=== PATIENT | female | born 1985 ===

== ENCOUNTER 2022-11-19 15:15 | Outpatient (CLI) | payer OTHER | END 2022-11-19 17:44 | disposition home or self-care (01) | LOC: PRENATAL 15:15 | PROVIDERS: ATTEND Obstetrics & Gynecology Maternal & Fetal Medicine | DX: O35.3XX0 Maternal care for (suspected) damage to fetus from viral disease in mother, not applicable or unspecified (principal); O36.8199 Decreased fetal movements, unspecified trimester, other fetus; O34.219 Maternal care for unspecified type scar from previous cesarean delivery; O09.529 Supervision of elderly multigravida, unspecified trimester; O44.00 Complete placenta previa NOS or without hemorrhage, unspecified trimester; Z3A.30 30 weeks gestation of pregnancy ==

== ENCOUNTER 2023-01-14 14:13 | Inpatient (IN) | payer OTHER ==
[~2023-01-14] VITALS: Ht 157.5 cm; Wt 3.2 kg
[2023-01-14 15:19] LABS: HEMATOCRIT 36.5 % (36.0-45.00); HEMOGLOBIN 12.2 g/dL (12.0-15.00); MEAN CORPUSCULAR HEMOGLOBIN 30.9 pg (27.00-32.0); MEAN CORPUSCULAR HGB CONC 33.5 g/dl (32.0-36.0); PLATELET COUNT 200 K/uL (150-450); RED BLOOD COUNT 3.97 M/uL (4.00-6.00); RED CELL DISTRIBUTION WIDTH 13.3 % (11.5-14.5)
[2023-01-14 15:37] LABS: PH,URINE 5.5 (5.0-8.0); URINE APPEARANCE Clear; URINE BILIRRUBIN Negative (NEGATIVE); URINE BLOOD Negative; URINE COLOR Yellow; URINE GLUCOSE Negative (NEGATIVE); URINE LEUKOCYTE Negative; URINE NITRATE Negative; URINE PROTEIN Negative (NEGATIVE); URINE UROBILINOGEN 0.2 E.U./dl
[2023-01-14 15:38] LABS: URINE BACTERIA 1155.3 uL (0.0-1933); URINE EPITHELIAL CELLS 77.1 uL (0.0-38.8); URINE RBC 21.1 uL (0.0-20.8); URINE WBC 16.3 uL (0.0-23.2)
[2023-01-14 16:00] LABS: INR < 0.93; PARTIAL THROMBOPLASTIN TIME 29.4 SECONDS (22.0-34.0); PROTHROMBIN TIME 9.4 SECONDS (9.0-11.5)
[2023-01-14 16:03] LABS: URINE CRYSTALS MODERATE /HPF; URINE MUCUS HEAVY
[2023-01-21] MEDS ORDERED: PRENATE ELITE1 EAC2 PO (08:00)
[2023-01-21 12:38] LABS: ABG PH 7.174 (7.35-7.45); ABG PO2 10.9 mmHg (80-100); ABG pCO2 56.5 mmHg (35-45)
[2023-01-21 12:42] LABS: BASE EXCESS -8.7 mmol/l; BICARBONATE 20.3 mmol/l (23-25); SaO2 7.3 %; Tco2 22.1 mmol/l; o2 21 %
[2023-01-21 16:47] LABS: HEMATOCRIT 37.8 % (36.0-45.00); HEMOGLOBIN 12.6 g/dL (12.0-15.00); MEAN CELL VOLUME 92.1 fL (80.00-100.00); MEAN CORPUSCULAR HEMOGLOBIN 30.6 pg (27.00-32.0); MEAN CORPUSCULAR HGB CONC 33.3 g/dl (32.0-36.0); PLATELET COUNT 182 K/uL (150-450); RED CELL DISTRIBUTION WIDTH 13.2 % (11.5-14.5)
== END 2023-01-24 12:29 | disposition home or self-care (01) | DRG 788 ==
LOC: OB/GYN 01-19 13:57 → O/R 01-21 07:37 → OB/GYN 01-21 11:59
PROVIDERS: ADMIT Obstetrics & Gynecology; ATTEND Obstetrics & Gynecology
PROC: 4A1HXCZ Monitoring of Products of Conception, Cardiac Rate, External Approach (ICD-10-PCS; 2023-01-21)
PROC: 10D00Z1 Extraction of Products of Conception, Low, Open Approach (ICD-10-PCS; principal; 2023-01-21 07:00)
DX: O34.211 Maternal care for low transverse scar from previous cesarean delivery (principal); Z3A.39 39 weeks gestation of pregnancy; Z37.0 Single live birth; Z20.822 Contact with and (suspected) exposure to COVID-19